=== PATIENT | male | born 1975 ===

== ENCOUNTER 2022-05-28 19:28 | Emergency (ER) | payer OTHER, SELFPAY ==
[2022-05-28] VITALS (37 sets, daily range): BP systolic 117–151; BP diastolic 70–97; PULSE 69–115; RESP 10–30; TEMP 36.5; O2SAT 96–99
--- NOTE | 2022-05-28 21:22 | ED.GENADUL_ITS ---
Discharge Plan Disposition Patient Disposition: STILL A PATIENT Condition: Stable Discharge Details Clinical Impression: Anxiety, Post traumatic stress disorder, Alcohol abuse Primary Care Provider: Unknown,Unknown ED Provider: Atif Chapman Home Meds and New Rx's Prescriptions: No Action lorazepam 1 mg Tablet 1 mg PO PRN PRN oxycodone 5 mg Tablet 5 mg PO BID gabapentin 300 mg Capsule 300 mg PO TID mirtazapine 15 mg Tablet 15 mg PO HS lisinopril 10 mg Tablet 10 mg PO DAILY omeprazole 20 mg Capsule,Delayed Release(Dr/Ec) 20 mg PO DAILY Medical Decision Making This is a 47-year-old gentleman with a past medical history of chronic pain, hypertension, PTSD, anxiety, alcohol abuse, presenting to the ER [facility] He reports drinking 4-6 beers daily but denies any history of DTs or alcohol withdrawal seizures. Clinically he appears well, nontoxic, hemodynamically stable, no signs of alcohol withdrawal. Patient has not been able to drink any alcohol since he was in police custody. Reflexively I see no clear indication for any laboratory values need to be drawn as I do not believe they would change his overall disposition. It was also brought to our attention that a COVID swab is no longer necessary for asymptomatic psychiatric patients. He denies any suicidal or homicidal ideations. I see no clear i ndication for CPSO. I will request a mental health evaluation and I will provide him with his nightly medications Mental health evaluation completed, please see their note. They personally [facility] out to the [facility] [place]. They recommended that I to reach out to the [facility] and request a transfer. He requested transfer was initiated and I spoke with Dr. Puckett at 2200. He states at the moment they are at capacity but we could reassess the situation tomorrow morning. I made the patient aware of this plan. He is tolerating p.o. intake and ambulating steadily to the restroom. He took all of his medications without difficulty. I have requested that the hemodialysis patient care specialist get involved in the case tomorrow morning, there is a veterans affair office in [place] and they may also be able to help expedite this process of disposition. This documentation was generated using EverChargeation system, please disregard any oddities of phrase or misspellings. HPI General Mode of arrival: ambulatory . Date/Time Provider Initiated Documentation: 05/28/22 19:32 . Limitations to Documentation: no limitations . Information obtained by: patient . HPI Narrative: This is a 47-year-old gentleman who is recently up here from [place], [facility] [place], past medical history of chronic pain, hypertension, anxiety, PTSD, alcohol abuse, presenting to the ER requesting transfer to the [facility] to get his head right. Patient states that he was arrested 2 nights ago for public intoxication, was released today, his car has been impounded and he has no way to get to the [facility] or to his vehicle. He states that he has not had his medications in 2-3 days. Patient states in general he does not feel well because he has not had his medication. He tells me that he drinks 4-6 beers daily. He tells me that he did a single 5-day outpatient detox facility once but has never required inpatient detox, denies alcohol withdrawal seizures or DTs. Patient contacted the crisis team and they recommended coming to the ER for evaluation. He denies recent illness or trauma. Has no acute medical concerns or complaints Related Data Home Medications Medication Instructions Recorded Confirmed gabapentin 300 mg capsule 300 mg PO TID 05/28/22 05/28/22 lisinopril 10 mg tablet 10 mg PO DAILY 05/28/22 05/28/22 lorazepam 1 mg tablet 1 mg PO PRN PRN 05/28/22 05/28/22 mirtazapine 15 mg tablet 15 mg PO HS 05/28/22 05/28/22 omeprazole 20 mg capsule,delayed 20 mg PO DAILY 05/28/22 05/28/22 release oxycodone 5 mg tablet 5 mg PO BID 05/28/22 05/28/22 Allergies Allergy/AdvReac Type Severity Reaction Status Date / Time promethazine [From Phenergan] Allergy Severe feels bugs Unverified 05/28/22 19:46 crawling on him / restless General Stated Complaint: DrugWithdr/MAT MANDO: 2 Review of Systems Constitutional Constitutional: Denies fatigue, Denies fever(s), Denies headache(s) and Denies weakness ENT Ears, Nose, Mouth, and Throat: Denies headache(s) and Denies neck pain Cardiovascular Cardiovascular: Denies chest pain and Denies dyspnea Respiratory Respiratory: Denies dyspnea Gastrointestinal Gastrointestinal: Denies abdominal pain, Denies nausea and Denies vomiting Musculoskeletal Musculoskeletal: Denies back pain and Denies neck pain Integumentary/Breasts Skin/Breast: Denies rash Neurologic Neurologic: Denies headache(s) and Denies weakness Psychiatric Psychiatric: Reports anxiety, Denies homicidal ideation and Denies suicidal ideation Endocrine Endocrine: Denies fatigue PFSH All Active Problems Anxiety (Chronic) Post traumatic stress disorder (Acute) Alcohol abuse (Chronic) Social History Smoking/Tobacco Use Status: Never Smoking risk assessment performed?: Yes Alcohol Intake: current Alcohol Intake frequency: 3 or more drinks per day Alcohol type: beer Drug use: Never Substance use type: does not use Do you feel safe at home: Yes Exam Const General: cooperative, healthy appearing, comfortable and no acute distress Orientation: alert, awake and oriented x3 HENMT Head: normal to inspection, normocephalic and atraumatic Face and sinus: normal facial exam Mouth: moist mucous membranes Eyes General: appearance normal, both eyes and all related structures Conjunctivae: conjunctivae normal Neck Neck: normal visual inspection, full ROM, trachea midline and supple Resp Effort & Inspection: normal respiratory effort and able to speak in complete sentences Auscultation: clear to auscultation bilaterally Cardio Rate: regular rate Rhythm: regular rhythm GI Palpation: soft, not firm, no guarding and nontender Back/Spine/Pelvis Back: No back tenderness Skin General skin exam: no rashes or lesions noted Neuro General: patient alert, patient awake, moves all extremities and no focal motor deficits Cognition: normal cognition Speech: speech normal Gait: normal gait Motor: muscle tone normal throughout Sensory Exam: no sensory deficits noted Extrem General: normal to inspection, full ROM and capillary refill normal Psych Appearance: grossly normal Mental Status: mental status grossly normal Course Vital Signs Vital signs: Vital Signs Temperature 36.5 C 05/28/22 19:37 Pulse 115 H 05/28/22 19:37 Blood Pressure 151/95 H 05/28/22 19:37 Pulse Oximetry 97 05/28/22 19:37 Temperature 36.5 C 05/28/22 19:37 Temperature Source Tympanic 05/28/22 19:37 Pulse 82 05/28/22 21:16 Pulse 82 05/28/22 21:20 Respiratory Rate 21 05/28/22 21:20 Respiratory Effort Non-Labored 05/28/22 20:10 Respiratory Pattern Normal 05/28/22 20:10 Blood Pressure 133/87 05/28/22 21:16 Blood Pressure Mean 95 05/28/22 21:16 Blood Pressure Position Sitting 05/28/22 19:37 Pulse Oximetry 97 05/28/22 21:20 Oxygen Delivery Method Room Air 05/28/22 19:37 Oxygen Flow Rate 0 05/28/22 19:37 Pain Level 10 05/28/22 19:37 PAWSS Have you Been Recently Intoxicated or Drunk Within the Last 30 days?: Yes Have you Ever Experienced Previous Episodes of Alcohol Withdrawal?: Yes Have you ever Experienced Withdrawal Seizures?: No Have you ever Experienced Delirium Tremens(DT)s?: Yes Have you ever undergone Alcohol Rehabilitation Treatment (i.e, inpt ot outpatient treatment programs)?: Yes Have you ever Experienced Blackouts?: Yes Have you ever Combined Alcohol with other Downers within the last 90 days?: No Have you ever Combined Alcohol with any other Substance of Abuse during the last 90 days?: No Positive Blood Alcohol level on Presentation? [PCS.BAL]: Unable to Obtain Evidence of Increased Autonomic Activity (i.e. HR>120, tremor, sweating, agitati on, nausea)?: No Result: 5
[2022-05-28] MEDS: oxyCODONE 5 MG TAB PO (22:05)
[2022-05-28] MEDS: Lisinopril 10 MG TAB PO (22:06)
[2022-05-28] MEDS: Acetaminophen 325 MG TAB (22:06)
[2022-05-28] MEDS: Gabapentin 300 MG CAP PO (22:06)
[2022-05-28] MEDS: Ondansetron O.D.T. 4 MG TABEF (22:07)
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
--- NOTE | 2022-05-28 22:43 | NUR.NOTE ---
Referral to Care Management to help with resources. Patient new to area and is a [facility] patient. Holding patient here in the ED as he is seeking placement for depression and substance abuse voluntarily.Nursing Note:
[2022-05-28] MEDS: Mirtazapine 15 MG TAB PO (22:56)
[2022-05-29] VITALS (75 sets, daily range): BP systolic 81–137; BP diastolic 46–88; PULSE 53–95; RESP 10–23; TEMP 36.2; O2SAT 90–100
--- NOTE | 2022-05-29 06:45 | NUR.NOTE ---
Nursing Note: Pt has slept comfortably once fell asleep. BPs have been soft and HR Jorge at times but Pt has appeared stable otherwise. spo2 has been stable, appears to have sleep apnea/snoring as well. Breakfast ordered for Pt.
--- NOTE | 2022-05-29 08:08 | W.EDPROG ---
Date of service: 05/29/22 Time of Service: 08:00 Medical Decision Making 0800 -- Please see previous provider's notes for initial presentation, exam, plan and course. Case endorsed to f/u on care management for disposition. 0900 --recovery coordinator evaluated patient at bedside. She has placed referral to the [facility] for transfer, potentially as an outpatient. 1000 -- I discussed with on-call physician Dr. Rachana Bowles at the [facility] --there are no transfer beds available. Patient can call the main number for the mental health desk at the [facility] at [phone] at ext [phone]. I discussed with Kathryn from mental health -- patient did not meet criteria for admission and cleared for discharge per mental health. Arranging for a ride home. Patient given NH contact information for outpatient follow-up. Patient feels comfortable with plan. Case also discussed with care management who will follow-up with recovery coordinator or patient's friend to secure a ride. 1045 --care management arranged for a ride with [facility] --patient states he has been speaking with his therapist and will ask [facility] to take him to the [facility] as they may have placement for him there or put him up in a hotel per his therapist. I called the [facility] and spoke to the CNO Mila and informed her of patient's plans to take [facility] to the VA per his conservation with his therapist and that [facility] did not participate in this plan. Medical Records Medical records reviewed: Yes I reviewed the patient's medical records. Sign Out Sign Out Data: Sign Out Comment: PTSD, anxiety, substance abuse. Transfer initiated to the [facility], awaiting placement. We will have care management involved tomorrow morning to help with disposition. Last updated by Atif Chapman PA at 05/28/22 23:29 Sign Out Comment: Stable patient stable throughout the night, no interventions needed. Last updated by George Valenzuela DO at 05/29/22 07:58 Discharge Plan Disposition Patient Disposition: HOME Condition: Stable Discharge Details Clinical Impression: Anxiety, Post traumatic stress disorder, Alcohol abuse Primary Care Provider: Unknown,Unknown ED Provider: Chani Slaughter Home Meds and New Rx's Prescriptions: Continued lorazepam 1 mg Tablet 1 mg PO PRN PRN oxycodone 5 mg Tablet 5 mg PO BID gabapentin 300 mg Capsule 300 mg PO TID mirtazapine 15 mg Tablet 15 mg PO HS lisinopril 10 mg Tablet 10 mg PO DAILY omeprazole 20 mg Capsule,Delayed Release(Dr/Ec) 20 mg PO DAILY Discharge Instructions Instructions: Depression (ED), Abuse of Alcohol (ED), Anxiety (ED) Additional Instructions: Drink plenty of fluids and get plenty of rest. You can call the main number for the mental health desk at the NH at [phone], extension [phone] to schedule an outpatient appointment for referral for your depression and substance use. Follow-up with your primary care doctor in 1 week. Return to the emergency department with any worsening or new concerning symptoms. Discharge Data Discharge Date/Time-TO BE ENTERED AT DEPARTURE: 05/29/22 11:57 Discharge Physician: Chani Slaughter
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
== END 2022-05-29 11:57 | disposition home or self-care (01) ==
PROVIDERS: Emergency Provider Physician Assistant
DX: F41.9 Anxiety disorder, unspecified (principal); F43.10 Post-traumatic stress disorder, unspecified; F10.10 Alcohol abuse, uncomplicated; I10 Essential (primary) hypertension
CPT/HCPCS: 99283; 99284